=== PATIENT | female | born 1945 | race Caucasian/White ===

== ENCOUNTER → 2016-11-28 | Outpatient (CLI) | payer MEDICARE ==
[~2016-11-28] MED LIST: ELIQUIS5 MG PO
== END | disposition home or self-care (01) ==
LOC: RAD.S 10:30
DX: R06.02 Shortness of breath (principal); R05 Cough; J98.4 Other disorders of lung

== ENCOUNTER 2016-12-06 08:24 | Inpatient (IN) | payer MEDICARE ==
[~2016-12-06] VITALS: Ht 172.7 cm; Wt 81.4 kg
--- NOTE | ~2016-12-06 | HP ---
ADMIT: 12/06/2016 RM/LOC: 308 [facility] MR#: [id number] [id number] [address] TATIANA BERMUDEZ [address] [place] [address] History and Physical SEX: F AGE: 71 : 1945 DATE OF SERVICE: CHIEF COMPLAINT: Shortness of breath. HISTORY OF PRESENT ILLNESS: Tatiana is a very pleasant 71-year-old female, normally follows with Dr. Cramer, presented to the emergency department with the above complaints. She states that over the last month, she has been having some increasing shortness of breath. She has been having cough along with this. She has had multiple x-rays as an outpatient and has been treated with antibiotics and steroids, etc. She reports that she got acutely worse over night to the point, where she was getting very dyspneic with short exertion. She presented to the emergency department for further workup and evaluation. Upon ER workup, it was found that she had essentially all normal labs, normal EKG; however, they did do a chest CT, which showed significant bilateral pulmonary emboli. Heparin drip per PE protocol. We were asked to admit to the ICU for further workup and management. Currently, patient states that she is feeling quite well. She does not feel too short of breath. No chest pains. The patient denies any recent trauma to her lower legs. She has never had a colonoscopy. She has not had a mammogram in the last 5 years. She has noted maybe a 10-pound weight loss over the last 6 months or so and states she just feels more full. She denies any changes in her stool. She does note that about a week ago, they traveled about 8 hours up to [place] in the car and back. She has no family history of clotting disorders. She has had children and no clotting problems with any of those. She has really no other complaints at this time. PAST MEDICAL HISTORY: Benign, mild generalized osteoarthritis. MEDICATIONS: 1. Daily multivitamin. 2. Occasional ibuprofen for joint aches and pains. ALLERGIES: NO KNOWN DRUG ALLERGIES. PAST SURGICAL HISTORY: None other than OB deliveries, and she has had 6 of those. SOCIAL HISTORY: She is to [place]. They have been for many years. No smoking in the past 40 years, less than 2 drinks per day. She is very active. She lives on a [place]. She had recent travel up to [place]. FAMILY HISTORY: Mom did have a history of blood clots, but that was after she had broken leg at age 73. No history of cancers. No diabetes otherwise, heart disease, or strokes. REVIEW OF SYSTEMS: A 10-point review of systems obtained per HPI, otherwise ADMIT: 12/06/2016 RM/LOC: 308 [facility] MR#: [id number] [address] [address] TATIANA BERMUDEZ [address] [place] [address] History and Physical SEX: F AGE: 71 : 1945 negative. PHYSICAL EXAMINATION: VITAL SIGNS: Blood pressure 112/92, respirations 14, pulse 65, temperature 97.7, 97% on room air. GENERAL: Alert and oriented x3. Does not appear to be in acute distress. Does not appear anxious. HEENT: Pupils equal, round, and reactive. Extraocular muscles intact. Throat clear. Trachea midline. HEART: Regular rate and rhythm. No murmurs. LUNGS: Clear to auscultation bilaterally. No wheezes or crackles. ABDOMEN: Soft, nontender, and nondistended. No organomegaly. EXTREMITIES: Without any significant edema. 2+ pulses. NEUROLOGIC: Cranial nerves II through XII grossly intact. No focal deficits. SKIN: Without any significant findings. LABORATORY DATA: Significant for slightly low platelet of 125,000. INR normal. CTA of the chest showed bilateral pulmonary emboli with mediastinal and hilar lymphadenopathy and some emphysema. Also a 6.9 mm nodular opacity seen along the minor fissure on the left side. ASSESSMENT AND PLAN: This is a 71-year-old female with: 1. Bilateral extensive pulmonary emboli, acute unknown etiology. 2. Thrombocytopenia. 3. Weight loss, mild over the last 3-6 months, approximately 10 pounds. 4. Mediastinal and hilar lymphadenopathy, possibly secondary to PE. 5. A 6.9 mm nodule opacity, left lower lobe. 6. No history of colonoscopy, no mammogram in the last 5 years. PLAN: We will admit the patient to ICU for acute monitoring for the next 24 hours, will be on heparin drip. We will likely transition to oral ADMIT: 12/06/2016 RM/LOC: 308 [facility] MR#: [id number] [address] [place] [id number] TATIANA BERMUDEZ [address] [place] [address] History and Physical SEX: F AGE: 71 : 1945 anticoagulation tomorrow. We will do further workup with scanning her belly given history of weight loss. We will get deep vein venous Dopplers of the bilateral lower extremities. She is otherwise healthy female and this seems most likely spontaneous PE with no underlying cause, but will not need further workup. Discussed at length with the patient. Discussed need for outpatient colonoscopy, mammogram, etc. We also discussed the need for followup CT in 1-2 months. Approximately, 35 minutes was spent in [id number] contact with the patient and her family. All her questions were answered. The patient is likely here 24-48 hours. Marcelino Copeland MD/ ramy JOB #: [id number] CC: Marcelino Copeland MD, Attending Physician Marcelino Copeland MD, Family Physician
--- NOTE | 2016-12-07 12:40 | ER ---
ADMIT: 12/06/2016 RM/LOC: 308 [facility] MR#: [id number] [id number] [facility] [address] ADEN BERMUDEZ [address] [place] [address] Emergency Room Report SEX: F AGE: 71 : 1945 DATE: 12/06/2016 This 71-year-old white female coming in with shortness of breath. She has had this progressively through the month, getting worse. CBC, chemistry, troponin, PT/INR, and EKG all negative. Exam is essentially negative. However, she does have a significant load of pulmonary emboli bilaterally on CT scan, unknown etiology. Start heparin drip on her per PE protocol. I spoke with Dr. Copeland since she had requested him, he graciously is going to admit her. CONDITION ON DISCHARGE: Critical, but stable. Heron Pérez MD/ ramy JOB #: [id number] CC: Marcelino Copeland MD, Attending Physician Marcelino Copeland MD, Family Physician Annelise Cramer MD
[2016-12-07] MEDS ORDERED: ELIQUIS5 MG PO (20:19)
--- NOTE | 2016-12-17 08:10 | DS ---
ADMIT: 12/06/2016 RM/LOC: 308 [facility] MR#: [id number] [address] [address] ADEN BERMUDEZ Nikki [address] [place] [address] General Discharge Summary SEX: F AGE: 71 : 1945 ADMISSION DATE: 12/06/2016 DISCHARGE DATE: 12/07/2016 FINAL DIAGNOSES: 1. New acute spontaneous bilateral pulmonary emboli. 2. Thrombocytopenia, mild. 3. Mediastinal and hilar lymphadenopathy, possibly secondary to pulmonary embolism. 4. Mild weight loss of 10 pounds over the last 3-6 months, unintentional. 5. Sigmoid diverticulosis and hiatal hernia. CONSULTATIONS: None. LABS AND IMAGING: Please refer to hospital record. The patient had CT with the above findings. The patient did have an abdomen and pelvic CT as well showing some sigmoid diverticulosis and hiatal hernia, otherwise negative. The patient did have Factor V Leiden done as well as prothrombin mutation, which were both negative. Other testing unable to be performed as she was on heparin drip and then transitioned over to Eliquis. Followup studies needed. The patient will need a repeat chest CT in 1-2 months, followup of hilar lymphadenopathy. REASON FOR ADMISSION: Please refer to dictated H and P. Briefly, the patient is a very pleasant 71-year-old female, no significant past medical history other than recent travel, some anasarca, presented to the Emergency Department with acute on subacute worsening of shortness of breath. The patient had symptoms for approximately a month. Treating as an outpatient. Acutely got worse the night prior to arrival to the Emergency Department. Upon workup found to have bilateral pulmonary emboli. The patient was admitted to ICU for further workup and management on heparin drip from the Emergency Department. HOSPITAL COURSE: The patient was admitted to ICU. She was in stable condition. Heparin drip from the ER was continued. Some labs were obtained. She had abdomen and pelvis CT scan which was essentially negative for any malignancy. She also had bilateral venous Doppler's done which were also negative for clot in her legs. The patient was otherwise hemodynamically stable. There were no other major events during hospitalization. The following morning, she was doing so well, she was transitioned off heparin drip onto Eliquis. Discussed the importance with her of outpatient followup with need for colonoscopy as well as possibly mammogram given her above- average health status. Also discussed possible followup with Dr. Temo Wren given her spontaneous pulmonary embolism. Again, the patient was ADMIT: 12/06/2016 RM/LOC: 308 [facility] MR#: [id number] [address] [place] [id number] AIDAN ADEN Nikki [address] [place] [address] General Discharge Summary SEX: F AGE: 71 : 1945 doing much better on discharge and requiring no oxygen and no other major events during hospitalization. DISCHARGE MEDICATIONS: Include new medication Eliquis. Please refer to hospital records for other medications and dosing. DISCHARGE INSTRUCTIONS: The patient was instructed to follow up with Dr. Cramer in 1 to 2 weeks. Also instructed to follow up with Dr. Temo Wren if she desired for further discussion on her spontaneous clots. Recommend that she have an outpatient colonoscopy mammogram. Discharge activities took approximately 35 minutes. Marcelino Copeland MD/ ramy JOB #: [id number] CC: Marcelino Copeland MD, Attending Physician Marcelino Copeland MD, Family Physician
== END 2016-12-07 11:00 | disposition home or self-care (01) | DRG 176 ==
LOC: ER 08:24 → 3ICU 10:00
PROVIDERS: ADMIT Family Medicine
DX: I26.99 Other pulmonary embolism without acute cor pulmonale (principal); D69.6 Thrombocytopenia, unspecified; M15.9 Polyosteoarthritis, unspecified; J43.9 Emphysema, unspecified; R59.1 Generalized enlarged lymph nodes; R91.1 Solitary pulmonary nodule; R63.4 Abnormal weight loss; K57.30 Diverticulosis of large intestine without perforation or abscess without bleeding; K44.9 Diaphragmatic hernia without obstruction or gangrene

== ENCOUNTER → 2016-12-21 | Outpatient (CLI) | payer MEDICARE | END | disposition home or self-care (01) | LOC: RAD.S 09:40 | DX: Z12.31 Encounter for screening mammogram for malignant neoplasm of breast (principal); R92.1 Mammographic calcification found on diagnostic imaging of breast ==

== ENCOUNTER → 2017-02-06 | Outpatient (CLI) | payer MEDICARE | END | disposition home or self-care (01) | LOC: PTH.S 13:30 → RAD.S 14:00 | DX: I26.99 Other pulmonary embolism without acute cor pulmonale (principal); R59.1 Generalized enlarged lymph nodes; I51.7 Cardiomegaly ==